=== PATIENT | female | born 1980 | race Caucasian/White ===

== ENCOUNTER 2024-06-18 05:37 | Day surgery (SDC) | payer OTHER ==
[2024-06-12 16:22] VITALS: BP 129/88
[~2024-06-18] VITALS: Ht 167.6 cm; Wt 93.6 kg
[2024-06-18] VITALS (7 sets, daily range): BP systolic 108–136; BP diastolic 59–78
[~2024-06-18 05:37] MED LIST: CELECOXIB200 MG PO; HYDROCODON-ACE1 EA10 PO; LACTATED RINGER'S 1,000 ML IV SCH; LEVOTHYROXINE112 MC1 PO; MULTI VITAMIN1 EACH PO; OMEPRAZOLE20 MG PO; PARAGARD T 3801 EACH XX; VITAMIN D310 MC2 PO
[2024-06-18] MEDS ORDERED: Ropivacaine HCl 20 MG/10 ML AMP ONE (05:47)
[2024-06-18] MEDS ORDERED: SODIUM CHLORIDE 0.9% 1,000 ML IV ONE (05:49)
[2024-06-18] MEDS ORDERED: DEXAMETHASONE SOD PHOS 4 MG/ML VIAL ONE (06:40)
[2024-06-18] MEDS ORDERED: MIDAZOLAM HCL 2 MG/2 ML VIAL ONE (06:40)
[2024-06-18] MEDS ORDERED: LIDOCAINE HCL 2% 5 ML SDV ONE ×2 (06:40→06:43)
[2024-06-18] MEDS ORDERED: Ropivacaine HCl 0.5% 30 ML VIAL ONE (06:40)
[2024-06-18] MEDS ORDERED: dexmedeTOMIDine HCl 200 MCG/2 ML VIAL ONE (06:40)
[2024-06-18] MEDS ORDERED: fentaNYL citrate 100 MCG/2 ML VIAL ONE (06:41)
[2024-06-18] MEDS ORDERED: propofoL 200 MG/20 ML VIAL ONE (06:43)
[2024-06-18] MEDS ORDERED: SODIUM CHLORIDE 0.9% 20 ML IV ONE (06:44)
[2024-06-18] MEDS ORDERED: PANTOPRAZOLE SODIUM 40 MG TABEC PO SCH (07:00)
[2024-06-18] MEDS ORDERED: HYDROmorphone HCL 4 MG TAB PO PRN (07:00)
[2024-06-18] MEDS ORDERED: ROPIVACAINE IN 0.9% SOD CHL/PF 545 ML ELS.PMP.HR IRRIGATION SCH (07:00)
[2024-06-18] MEDS ORDERED: LIDOCAINE HCL 1% 5 ML SDV INJ ONE (07:00)
[2024-06-18] MEDS ORDERED: IBLOOD GLUCOSE TEST STRIP 1 EA TEST VI PRN ×2 (07:00→08:15)
[2024-06-18] MEDS ORDERED: KETOROLAC TROMETHAMINE 30 MG/ML VIAL IV PRN (07:00)
[2024-06-18] MEDS ORDERED: ondansetron HCL 4 MG TAB PO SCH (07:00)
[2024-06-18] MEDS ORDERED: HYDROmorphone HCL 4 MG TAB PO SCH (07:00)
[2024-06-18] MEDS ORDERED: GABAPENTIN 600 MG TAB PO SCH (07:00)
[2024-06-18] MEDS ORDERED: OXYCODONE HCL 5 MG TAB PO SCH (07:00)
[2024-06-18] MEDS ORDERED: TRANEXAMIC ACID IN NACL,ISO-OS 1,000 MG/100 ML PIGGYBACK IV SCH ×2 (07:00→09:59)
[2024-06-18] MEDS ORDERED: INTRA-ARTICULAR ANALGESIC INJECTION XX SCH (07:00)
[2024-06-18] MEDS ORDERED: CEFAZOLIN SODIUM 2 GM/20 ML SYR IV SCH ×2 (07:00→15:00)
--- NOTE | 2024-06-18 07:28 | NUR ---
PT NOT AVAILABLE FOR VISIT. PROVIDED PRAYER.
[2024-06-18] MEDS ORDERED: ondansetron HCL 4 MG/2 ML VIAL ONE (07:30)
[2024-06-18] MEDS ORDERED: HYDROmorphone HCL 1 MG/ML SYR IV PRN (08:15)
[2024-06-18] MEDS ORDERED: fentaNYL citrate 50 MCG/ML SDV IV PRN (08:15)
[2024-06-18] MEDS ORDERED: MIDAZOLAM HCL 2 MG/2 ML VIAL IV PRN (08:15)
[2024-06-18] MEDS ORDERED: droPERidol 5 MG/2 ML VIAL IV PRN (08:15)
[2024-06-18] MEDS ORDERED: diphenhydrAMINE HCL 50 MG/ML VIAL IV PRN (08:15)
[2024-06-18] MEDS ORDERED: NALOXONE HCL 0.4 MG SYR IV PRN (08:15)
[2024-06-18] MEDS ORDERED: ondansetron HCL 4 MG/2 ML VIAL IV PRN (08:15)
[2024-06-18] MEDS ORDERED: PROCHLORPERAZINE EDISYLATE 10 MG/2 ML VIAL IV PRN (08:15)
[2024-06-18] MEDS ORDERED: ACETAMINOPHEN500 MG PO (08:31)
[2024-06-18] MEDS ORDERED: ASPIRIN325 MG PO (08:31)
[2024-06-18] MEDS ORDERED: GABAPENTIN300 MG PO (08:31)
[2024-06-18] MEDS ORDERED: HYDROMORPHONE HC4 MG PO (08:31)
[2024-06-18] MEDS ORDERED: SENNA LAX8.6 MG PO (08:31)
[2024-06-18] MEDS ORDERED: ASPIRIN 325 MG TAB PO SCH (09:00)
--- NOTE | 2024-06-18 09:03 | NUR ---
06/18/24 0903 Nithya Bales 0844-PT ARRIVES TO PACU VIA STRETCHER, RESTING SEMI FOWLERS. PT RESPONSIVE TO STIMULI, BUT RESTS W/ EYES CLOSED. VSS ON 6L VIA MASK, RR EVEN AND UNLABORED. 0850-PT'S O2 SATS DECREASED TO 86% ON 6L VIA MASK, 02 INCREASED TO 10L VIA MASK AND PT INSTRUCTED TO DEEP BREATH, SATS IMPROVED TO 94%. 0853-WING COVERER AT BEDSIDE FOR POST OP XRAY. 0900-CRYO CUFF PLACED ON LT KNEE PER ORDERS. PT AWAKENS TO VOICE AND ABLE TO ANSWER QUESTIONS, DENIES PAIN OR NAUSEA. VSS ON 10L VIA MASK, RR EVEN AND UNLABORED.
--- NOTE | 2024-06-18 09:25 | NUR ---
PT ARRIVED BACK TO PACU ON RA, AAOX3. PT ANSWERS QUESTIONS APPROPRIATELY AND IS ABLE TO MAKE HER NEEDS KNOWN. VS TAKEN, STABLE. IV SITE ASSESSED AND NOTED TO BE SL'D UPON RETURN. PT DENIES NAUSEA AND PAIN WHEN ASKED. PT REPORTS NUMBNESS AND IS UNABLE TO WIGGLE TOES/MOVE LLE AT ALL. SPINAL LEVEL AT T-11 APPROX. SURIGCAL SITE VISUALIZED WITH TREE THINNER AND REPORT RECEIVED. DRSG APPEARS CDI. CRYO CUFF IN PLACE. HEEL FLOATS, LEN SASKIA, AND FOOT PUMPS IN PLACE. LLE ELEVATED BETWEEN HIP AND HEART LEVEL. ALL QUESTIONS ANSWERED. CALL LIGHT WITHIN PT REACH. BED IN LOW POSITION, WHEELS LOCKED, BILAT RAILS IN PLACE. 0935-HUSBUND IN HALLWAY AND NOTIFIED OF PTS RETURN AND BROUGHT TO PTS ROOM. PT PROVIDED ICE WATER, CRACKERS, AND PUDDING.
--- NOTE | 2024-06-18 10:34 | NUR ---
1025-INTO PTS ROOM FOR ROUTINE REASSESSMENT. TXA INFUSION COMPLETE. IV FLUSHED W/10 ML NS/SL'D. VS TAKEN. SURGICAL SITE VISUALIZED AND NO ACUTE CHANGES NOTED FROM PREVIOUS ASSESSMENT. PT ABLE TO WIGGLE TOES SOME AND DERMATOME LEVEL APPEARS TO BE AT L3. PT CONT TO DENY PAIN OR NAUSEA WHEN ASKED. PT HAS EATEN CRACKERS, PUDDING, AND IS TAKING PO FLUIDS WELL. ALL QUESTIONS ANSWERED. CALL LIGHT WITHIN PT REACH. BED IN LOW POSITION, WHEELS LOCKED, BILAT RAILS IN PLACE. PTS SPOUSE LEAVING TO RUN AN ERRAND AND WILL RETURN.
[2024-06-18] MEDS ORDERED: ONDANSETRON 4 MG TAB ODT SL ONE (10:50)
--- NOTE | 2024-06-18 10:58 | NUR ---
1040-CALL LIGHT ANSWERED. PT REPORTS EXPERIENCING A SMALL AMT OF NAUSEA AND PAIN IN BACK OF KNEE AND REPORTS "MUSCLE PAIN" IN CALF AREA. EITAN REMAINS CDI. REPOSITIONED LLE FOR COMFORT AND MOVED CRYO CUFF TO BACK OF KNEE AREA FOR IMPROVED PAIN RELIEF. PT RATES PAIN 5-6/10 AND WOULD LIKE TO TRY PAIN MEDS AND NAUSEA MEDS. 1042-CALL PLACED TO DR. PRATER IN OR TO REPORT PTS NAUSEA. VERBAL ORDER RECEIVED TO GIVE 4MG ZOFRAN ODT SL ONCE FOR C/O N/V. ORDER ENTERED AND CONFIRMED. 1052-ZOFRAN GIVEN SL. ICE WATER REFILLED. 1054-PO PAIN MEDS GIVEN PER ORDERS. PT WITH CALL LIGHT.PERSONAL BELONINGS WITHIN REACH. BED IN LOW POSITION, WHEELS LOCKED, BILAT RAILS IN PLACE FOR SAFETY.
--- NOTE | 2024-06-18 11:12 | OR ---
[facility] [address] [place], [place] [address] Signed DATE OF OPERATION: 06/18/2024 SURGEON: aGry Stearns MD PREOPERATIVE DIAGNOSIS: Severe degenerative joint disease, left knee. POSTOPERATIVE DIAGNOSIS: Severe degenerative joint disease, left knee. PROCEDURE PERFORMED: Left total knee arthroplasty with Nilesh. PSYCHIATRIC AIDE INSTRUCTOR: Taty Marroquin PA-C. Taty was present and critical for all portions of procedure. ANESTHESIA: Spinal. BLOOD LOSS: 175 mL. TOURNIQUET TIME: Zero. IMPLANTS: Danielle Triathlon size 210 mm polyethylene and a 29 mm patella. BRIEF HISTORY: Ezekiel is a 44-year-old female with progressive worsening of arthritis and pain, nonresponsive to arthroscopy injections and bracing. Risks and benefits of operative treatment were discussed with her and she elected to proceed. DESCRIPTION OF PROCEDURE: Once consent was obtained she was taken to the operating room. After adequate anesthesia she was placed on operating table. All downside pressure points were well padded. The left leg was placed on a hip bump and prepped and draped in a standard sterile fashion. The left knee was approached through standard anterior midline incision, carried through the skin and subcutaneous tissue. A low mid vastus arthrotomy Electronically Signed By: GARY STEARNS MD 06/18/24 1112 PATIENT NAME: EZEKIEL HORTON OPERATIVE REPORT DATE OF : 80 REPORT #: [id number] PHYSICIAN: GARY STEARNS MD PCP: NO PRIMARY CARE PHYSICIAN REPORT IS CONFIDENTIAL AND NOT TO BE RELEASED WITHOUT AUTHORIZATION [facility] [address] [place], [place] [address] Signed was performed. The infrapatellar fat pad was excised. The MCL was elevated as a sleeve around to the posteromedial corner. All bleeders were cauterized as we went. Anterior horns of menisci were transected. The ACL was transected. PCL was found to be intact. The navigation computer arrays were then placed in the distal femur and proximal tibia. The leg was registered with the computer. Followed by the fine anatomic points of the knee. The four ligamentous poses were then undertaken with only mild laxity. The femur was externally rotated a little bit otherwise, it was in good balance. The robot was then brought in, the four straight cut and two angle cuts were then made with care taken to protect the patellar tendon and MCL. The bony remnants were removed as were any remaining osteophytes. The posterior osteophytes removed off the femur. No posterior release was performed. The trials were then positioned. Knee was taken from 0-130 degrees with excellent stability throughout. The patella was cut, sized and drilled for a 29 mm patella. The distal femoral drill holes were completed. The proximal tibia was completed using the keel punch followed by the drill punch. The implants were selected. The tibia was impacted into position first until it was seated flush. The polyethylene was then snapped into position. The femur was impacted. The knee was extended and loaded. The patella was clamped into position. Excellent apposition was obtained. Knee was taken through range of motion. There was excellent patellar tracking and good stability. The knee was then washed out with one bottle of Surgiphor followed by normal saline. The periarticular soft tissues were injected with 100 mL ropivacaine and Toradol mixture. The On-Q pain pump was percutaneously placed into the adductor canal from the suprapatellar pouch. The arthrotomy was then closed using a combination of #2 FiberWire and #2 Stratafix, subcutaneous tissue with 0 Stratafix and skin with 3-0 Stratafix. The skin was then sealed using Dermabond and Steri-Strips, was dressed with an Acticoat-7 dressing, ABD and Deejay wrap. She tolerated the procedure well. All sponge, needle, and instrument counts were correct. Gary Stearns MD BA/MODL /[id number] Electronically Signed By: GARY STEARNS MD 06/18/24 1112 PATIENT NAME: EZEKIEL HORTON OPERATIVE REPORT DATE OF : 80 REPORT #: [id number] PHYSICIAN: GARY STEARNS MD PCP: NO PRIMARY CARE PHYSICIAN REPORT IS CONFIDENTIAL AND NOT TO BE RELEASED WITHOUT AUTHORIZATION [address] [place], [place] [address] Signed Copies: ~ Electronically Signed By: GARY STEARNS MD 06/18/24 1112 PATIENT NAME: EZEKIEL HORTON OPERATIVE REPORT DATE OF : 80 REPORT #: [id number] PHYSICIAN: GARY STEARNS MD PCP: NO PRIMARY CARE PHYSICIAN REPORT IS CONFIDENTIAL AND NOT TO BE RELEASED WITHOUT AUTHORIZATION
--- NOTE | 2024-06-18 11:25 | NUR ---
1125-INTO PTS ROOM FOR ROUTINE REASSESSMENT. PT AAOX3. PTS HAS RETURNED AND IS AT BEDSIDE. VS TAKEN. IV SITE ASSESSED. SURIGCAL SITE VISUALIZED AND W/O ACUTE CHANGES NOTED FROM PREVIOUS ASSESSMENT. ON Q PUMP REMAINS IN PLACE AT 4. PT DENIES NAUSEA WHEN ASKED AND REPORTS PAIN IMPROVED TO 5/10 IN LLE/KNEE AREA. ALL QUESTIONS ANSWERED. CRYO CUFF REMAINS IN PLACE. CMS INTACT. BED IN LOW POSITION, WHEELS LOCKED, BILAT RAILS IN PLACE. CALL LIGHT WITHIN PT REACH.
--- NOTE | 2024-06-18 11:50 | NUR ---
1150-ICE WATER REFILLED FOR PT. LUNCH ORDER TAKEN. AND ORDER PLACED WITH DIETARY.
--- NOTE | 2024-06-18 12:15 | NUR ---
CALLED PTS PHARMACY TO VERIFY IF DICLOFENAC ORDER WAS RECEIVED. THEY REPORT THEY DID NOT RECEIVE IT AND INFORMED THIS RN THAT THEY ARE UNABLE TO FILL DILAUDID ORDER THEY CURRENTLY HAVE NO SUPPLY OR ETA ON THE MEDICATION. PT INFORMED WELL PROVIDER. PT OKAY TO USE [facility]. ATTEMPTED SEVERAL TIMES TO CALL AND VERIFY MED IN STOCK. UNABLE TO GET THROUGH. APPEARS PHONE LINES ARE DOWN FOR [facility]. CALLED LOCAL [facility]. THEY REPORT INABILITY TO FILL D/T INSIFFICIENT QUANTITY ON HAND FOR AMT PRESCRIBED. [facility] CALLED AND ARE ABLE TO ACCOMODATE RX. DR. JOSI YEE WELL PT AND HER SPOUSE.
--- NOTE | 2024-06-18 13:05 | NUR ---
1225-INTO PTS ROOM FOR ROUTINE REASSESSMENT. PT REMAINS AAO AND ABLE TO MAKE HER NEEDS KNOWN. VS TAKEN. IV SITE ASSESSED. SURGICAL SITE OBSERVED AND NO ACUTE CHANGES NOTED FROM INITIAL ASSESSMENT. SIG OTHER AT BEDSIDE. PT REPORTS PAIN 5/10 AND TOLERABLE FOR HER AT THIS TIME. PT PROVIDED REPOSITIONING ASSISTANCE. CMS APPEARS INTACT. POLAR ICE MACHINE IN PLACE. TEDS, HEEL FLOATS, AND SCD'S REMAIN PLACE. PT COMPLIANT WITH ELEVATION OF LLE. PT PROVIDED WITH COFFEE, CREAM, AND SUGAR. CALL LIGHT WITHIN PT REACH. BED IN LOW POSITION, WHEELS LOCKED. ALL QUESTIONS ANSWERED. 1245-LUNCH ARRIVED FOR PT. REMAINS AT PT BEDSIDE. 1305-CALL LIGHT ANSWERED. PT REPORTS NEED TO VOID. PT UP TO BSC WITH USE OF FWW AND RN ASSIST. PT ABLE TO VOID APPROX 300 ML OF CLR, YELLOW URINE.
[2024-06-18] MEDS ORDERED: DICLOFENAC SODI75 MG PO (13:41)
[2024-06-18] MEDS ORDERED: DILAUDID4 MG PO (13:43)
--- NOTE | 2024-06-18 14:25 | NUR ---
1325-INTO PTS ROOM FOR ROUTINE REASSESSMENT. VS TAKEN. IV SITE ASSESSED. PT REPORTS IMPROVEMENT IN PAIN TO 3/10 AFTER GETTING UP AND USING BSC. PT REPORTS THIS TO BE A TOLERABLE LEVEL OF PAIN FOR HER. PT DENIES ANY FURTHER NAUSEA. SURGICAL SITE VISUALIZED POST AMBULATION AND REMAINS CDI. PT HAS EATEN LUNCH AND CONTINUES TO TAKE PO FLUIDS WELL. PTREPORTS SPOUSE LEFT TO HEALTH PROMOTER HER PAIN MED RX FROM PHARMACY. ALL QUESTIONS ANSWERED. BED IN LOW POSITION, WHEELS LOCKED, CALL LIGHT WITHIN PT REACH. BILAT RAILS UP FOR SAFETY. PT READING BOOK IN BED. CMS APPEARS TO BE INTACT. CRYO CUFF IN PLACE. LLE ELEVATED. 1355-PHYSICAL THERAPY HERE TO WORK WITH PT. 1415-PT RETURNED TO WITH PHYSICAL THERAPY. THERAPIST REPORTS PT PASSED EVAL. 1420-DR. PRATER NOTIFIED OF PT PASSING PT. VERBAL ORDER FOR DISCHARGE RECEIVED. ENTERED ORDER. 1425-DR. PRATER WITH REQUEST FOR THIS RN TO CALL AND VERIFY THAT DILAUDID RX SENT TO [facility] WAS FILLED FOR PT PRIOR TO SENDING HOME. CALL PALCED AND VERIFIED. PTS SPOUSE AT PHARMACY PICKING UP MED NOW.
[2024-06-18] MEDS ORDERED: ACETAMINOPHEN 500 MG TAB PO SCH (15:00)
[2024-06-18] MEDS ORDERED: GABAPENTIN 300 MG CAP PO SCH (15:00)
--- NOTE | 2024-06-18 15:20 | NUR ---
1430-INTO PTS ROOM FOR ROUTINE REASSESSMENT. VS TAKEN. IV SITE ASSESSED. SURGICAL SITE VISUALIZED POST AMBULATION WITH THERAPY. DRSG REMAINS CDI. PT REPORTS NO INCREASE IN PAIN AND CONT TO REPORT PAIN 3/10. PT CONT TO DENY ANY FURTHER NAUSEA WHEN ASKED. PTS SPOUSE REMAINS AT PHARMACY WAITING FOR RX TO BE COMPLETED. PT REPORTS THEY ARE FILLING AND PROCESSING IT CURRENTLY. PT READY TO DRESS FOR UPCOMING DISCHARGE. 1445-CALL LIGHT AND PERSONAL BELONINGS WITHIN PT REACH ON BED. PT SITTING UP ON EOB WITH WALKER AT BEDSIDE. PT ASSISTED W/ HER SOCKS AND THEN REPORTS SHE CAN FINISH THE REST ON HER OWN. PT WILL PRESS CALL LIGHT IF SHE REQUIRES ADDITIONAL ASSISTANCE. 1455-PT DRESSED AND UP TO RR WITH USE OF FWW. 1500-PT BACK TO ROOM AND SITTING UP ON EOB. RETURNED FROM PHARMACY. DISCHARGE EDUCATION PROVIDED TO PT AND HER SPOUSE. PT PROVIDED POST OP AND DRSG CHANGE APPTS, DR. PRATER AFTER HOURS PHONE NUMBER, AND DRSG, TX'S, MEDS, AND RESTRICTIONS ALL DISCUSSED. ALL OF PT AND HER SIG OTHERS QUESTIONS WERE ANSWERED. PT PROVIDED INSPIROMETER AND INSTRUCTIONS FOR USE. PT REPORTS USING BEFORE AND VERBALIZES CORRET TECHNIQUE FOR USE. PT AND SPOUSE VERBALIZE UNDERSTANDING OF DISCHARGE INSTRUCTIONS PROVIDED. PT GIVEN WRITTEN INSTRUCTIONS WELL. 1515-IV REMOVED. TIP APPEARS INTACT. PRESSURE DRSG APPLIED W/GAUZE AND COBAN. ICE WATER REFILLED. [email or web address] ICE MACHINE REFILLED WITH JUST ICE FOR USE ONCE RETURN HOME AT PTS REQUEST. ICE PACK PROVIDED FOR DRIVE HOME. 1520-PTS SIG OTHER TOOK MOST OF PT PERSONAL BELONINGS OUT TO CAR AND IS PULLING CAR AROUND TO FRONT OF HOSPITAL.
--- NOTE | 2024-06-18 15:25 | NUR ---
PT DISCHARGED FROM DS VIA WC TO PASSENGER SIDE OF HUSBANDS VEHICLE. ALL PERSONAL BELONINGS TAKEN WITH PT.
[2024-06-18] MEDS ORDERED: SENNOSIDES 1 TAB PO SCH (21:00)
[2024-06-19] MEDS ORDERED: DICLOFENAC SOD 75 MG TABEC PO SCH (08:00)
== END 2024-06-18 15:25 | disposition home or self-care (01) ==
LOC: DS 05:37
PROVIDERS: ATTEND Specialist
PROC: 0SRD0JZ Replacement of Left Knee Joint with Synthetic Substitute, Open Approach (ICD-10-PCS; principal; 2024-06-18 07:00)
DX: M17.12 Unilateral primary osteoarthritis, left knee (principal); E89.0 Postprocedural hypothyroidism; Z79.890 Hormone replacement therapy; Z79.899 Other long term (current) drug therapy; Z88.5 Allergy status to narcotic agent
CPT/HCPCS: 01400; 64447; 64450; 73560; 76942; 97161; A9270; C1713; C1776; J0690; J1100; J2003; J2250; J2405; J2704; J2795; J3010; J7030; J7121; J7999